=== PATIENT | male | born 1975 | race Caucasian/White ===

== ENCOUNTER 2023-02-12 16:44 | Emergency (ER) | payer OTHER, SELFPAY ==
[2023-02-12 17:06] VITALS: BP 162/95; PULSE 86; RESP 16; TEMP 36.6; O2SAT 97; BMI 25.4
--- NOTE | 2023-02-12 17:09 | ED.EYEPROB1 ---
HPI - Eye Problem General Chief complaint: Eye Problems Stated complaint: EYE INJURY Time Seen by Provider: 02/12/23 16:57 History of Present Illness HPI Narrative: this patient's here to be violated for an eye injury. He was at his job working today. He does wear corrective lenses but he was working quite diligently and the screwdriver he was using accidentally struck him in the right upper eye. He did not have a foreign body sensation or symptoms before he struck himself with a screwdriver. He does not wear contact lenses and doesn't really have any other eye complaints or injuries prior to this event today. He will be questioned in regards to his last tetanus by the nursing staff and treated appropriately. Related Data Home Medications Medication Instructions Recorded Confirmed No Known Home Medications 02/12/23 02/12/23 Allergies Allergy/AdvReac Type Severity Reaction Status Date / Time morphine AdvReac Severe Verified 02/12/23 17:10 Exam Narrative Exam Narrative: awake alert oriented ?3 good historian pleasant fully ambulatory. Problem focused examination as noted below. The craniofacial structures are normal. The left eye is normal. The right eye does not have a subconjunctival hemorrhage. Theere is no scleral icterus there is no pallor or anemia. Pupillary light response is normal. There is no perilimbal injection of the vessels. When we raised the upper eyelid in the most superior aspect of the globe in the conjunctival area this four or five what appears to be small particulate foreign bodies. He suggested they could be neoplastic or grease. They look more like plastic. We will go ahead and then placed some tetracaine drops to the eye and try to irrigate or remove these foreign bodies from the eye conjunctival area. Constitutional Vital Signs, click to edit/add: Last Vital Signs Temp 97.8 F 02/12/23 17:06 Pulse 86 02/12/23 17:06 Resp 16 02/12/23 17:06 BP 162/95 H 02/12/23 17:06 Pulse Ox 97 02/12/23 17:06 O2 Del Method Room Air 02/12/23 17:31 Course Vital Signs Vital signs: Vital Signs Temperature 97.8 F 02/12/23 17:06 Pulse Rate 86 02/12/23 17:06 Respiratory Rate 16 02/12/23 17:06 Blood Pressure 162/95 H 02/12/23 17:06 Pulse Oximetry 97 02/12/23 17:06 Oxygen Delivery Method Room Air 02/12/23 17:06 Temperature 97.8 F 02/12/23 17:06 Pulse Rate 86 02/12/23 17:06 Respiratory Rate 16 02/12/23 17:06 Blood Pressure 162/95 H 02/12/23 17:06 Pulse Oximetry 97 02/12/23 17:06 Oxygen Delivery Method Room Air 02/12/23 17:31 MDM - Eye Problem MDM Narrative Medical decision making narrative: after application of several drops of tetracaine we had good local anesthesia thigh. The upper eyelid was lifted up and there is at least six or seven small pieces of particulate foreign body on the surface and underneath the conjunctiva on her membrane. With splinter forceps and a moistened Q-tip they were removed. I removed at least seven pieces. He tolerated procedure well. I did not visually see any more residual foreign bodies and I don't believe there is globe puncture. We will go ahead and get the image of the eye to make sure there is no decompression in the anterior-posterior chamber. We will refer him to a bridal consultant tomorrow. He'll be placed on antibiotic drops Discharge Plan Discharge Chief Complaint: Eye Problems Clinical Impression: Foreign body in eyeball, right, Puncture wound of right eyeball Patient Disposition: Home, Self-Care Time of Disposition Decision: 17:57 Prescriptions / Home Meds: No Action No Known Home Medications Additional Instructions: apply antibiotic drops every 4-6 hours. Ice compresses to the eye follow-up with local bridal consultant Dr. Gomez tomorrow Stand Alone Forms: Portal Instructions Referrals: Physician,Non-Staff, MD [Primary Care Provider] - 1 week
[2023-02-12] MEDS: TETRACAINE HCL 0.5% OP SOL 80 DROP/4 ML BOTTLE OP (17:23)
[2023-02-12] MEDS: FLUORESCEIN SODIUM 1 MG STRIP OP (17:35)
--- NOTE | 2023-02-12 17:38 | CT_ITS ---
[address] [address] Patient Name: PRASANTH AGUDELO MRN: [id number] date: 1975 Sex: M Assigned Patient Location: ER Current Patient Location: Accession/Order Number: [id number] Exam Date: 02/12/2023 17:45 Report Date: 02/12/2023 18:39 At the request of: EDWIN LAWRENCE Procedure: CT orbit BI wo con EXAM: CT orbit BI wo con HISTORY: puncture wound right eye with foreign body TECHNIQUE: Axial CT scans through the orbits were obtained without contrast administration. Coronal and sagittal reconstruction images were obtained. Dose reduction techniques were achieved by using: automated exposure control and/or adjustment of mA and /or kV according to patient size and/or use of iterative reconstruction technique. FINDINGS: Orbits are intact. The intraorbital contents appear normal. Visualized lining setter spaces appear normal. Parapharyngeal spaces appear clear. Visualized neck shows no adenopathy. The visualized intracranial contents show no acute process. Craniovertebral junction appears normal. Middle ear cavities are clear. Mastoids are clear. CT/CT orbit BI wo con IMPRESSION: Normal CT of the orbits. Electronically authenticated by: JESSIKA MOON Date: 02/12/2023 18:39
[2023-02-12] MEDS: EYE RELIEF EYE WASH 118 ML/BOTTLE BOTTLE OP (18:03)
[2023-02-12] MEDS: GENTAMICIN SULFATE 0.3% OP SOL 100 DROP/5 ML BOTTLE OP (18:20)
== END 2023-02-12 18:30 | disposition home or self-care (01) ==
PROVIDERS: Emergency Provider Emergency Medicine Emergency Medical Services
DX: S05.51XA Penetrating wound with foreign body of right eyeball, initial encounter (principal); W22.8XXA Striking against or struck by other objects, initial encounter
CPT/HCPCS: 65205; 70480; 99284

== ENCOUNTER 2024-08-27 14:06 | Emergency (ER) | payer BC, SELFPAY ==
[2024-08-27 14:09] VITALS: BP 170/96; PULSE 96; TEMP 36.8; O2SAT 97; BMI 25.0
--- NOTE | 2024-08-27 14:17 | ED_ITS ---
HPI - Wound/Laceration General Chief Complaint: Wound/Laceration Stated Complaint: LACERATION - HAND Time Seen by Provider: 08/27/24 14:08 Mode of arrival: walk-in History of Present Illness HPI narrative: Patient is a 49-year-old male who presents to the emergency department for stab wound to the palm of the left hand. He states he was using a pick to help him remove the seal on a hydraulic piece of equipment in his home. He states the pick slipped and he stabbed himself in the palmar aspect of the left hand just proximal to the second and third MCP joints. He did not puncture all the way through the dorsum of the left hand but a small hematoma is forming in the area as he almost push through the skin. Last tetanus about 10 years ago. No other associated injuries. He has no significant pain at this time. He is able to move the fingers of the left hand without difficulty. He is ambidextrous. Related Data Previous Rx's ?Medication ?Instructions ?Recorded cephalexin 500 mg capsule 500 mg PO Q8H 5 days #15 caps 08/27/24 hydrocodone 5 mg-acetaminophen 325 1 tab PO Q6H PRN pain 3 days #12 08/27/24 mg tablet tabs Allergies Allergy/AdvReac Type Severity Reaction Status Date / Time morphine AdvReac Severe Verified 02/12/23 17:10 Review of Systems ROS Constitutional Denies: fever or chills Ears, nose, mouth, and throat Denies: throat pain or nasal congestion Cardiovascular Denies: chest pain Respiratory Denies: shortness of breath Gastrointestinal Denies: nausea or vomiting Musculoskeletal Denies: back pain or neck pain Integumentary/Breast Denies: rash Neurological Denies: numbness in extremities or weakness in extremities Hematologic/Lymphatic Denies: easy bruising or easy bleeding PFSH PFSH Social History Little interest or pleasure in doing things: not at all Feeling down, depressed, or hopeless: not at all Exam Narrative Exam Narrative: Gen.: Awake, alert, in no distress Head: Normocephalic, atraumatic ENT: Moist mucous membranes Respiratory: No respiratory distress Extremities: Left hand with a small puncture wound on the palmar aspect of the hand just proximal to the second and third MCP joints. No deep laceration visible or exposure of subcutaneous tissue. Palmar aspect of the hand with no puncture wounds, bleeding or lacerations. A small hematoma is noted on the dorsum of the hand proximal to the second and third MCP joints. Patient is able to flex and extend the second and third digits at the PIP and DIP joints as well as the MCP joints. No evidence of tendon deficit. Psych: Normal mood and affect Neuro: No focal neuro deficit Skin: Warm, dry Constitutional Vital Signs, click to edit/add: Last Vital Signs Temp 98.2 F 08/27/24 14:09 Pulse 96 H 08/27/24 14:09 Resp 18 08/27/24 14:09 BP 170/96 H 08/27/24 14:09 Pulse Ox 97 08/27/24 14:09 Course Vital Signs Vital signs: Vital Signs Temperature 98.2 F 08/27/24 14:09 Pulse Rate 96 H 08/27/24 14:09 Respiratory Rate 18 08/27/24 14:09 Blood Pressure 170/96 H 08/27/24 14:09 Pulse Oximetry 97 08/27/24 14:09 Temperature 98.2 F 08/27/24 14:09 Pulse Rate 96 H 08/27/24 14:09 Respiratory Rate 18 08/27/24 14:09 Blood Pressure 170/96 H 08/27/24 14:09 Pulse Oximetry 97 08/27/24 14:09 MDM - Wound/Laceration MDM Narrative Medical decision making narrative: Tetanus was ordered but declined by patient. X-rays were obtained which are unremarkable. Bleeding is well-controlled to the puncture wound and the patient is neurovascularly intact with no evidence of tendon deficit. The area was cleansed, dressed with bacitracin and wound dressing with Colin wrap. Patient remains neurovascularly intact. Rest, ice, elevate. Antibiotics and a short course of analgesics given for home. Return to the emergency department if symptoms change or worsen. SUPERVISED APC VISIT, PHYSICIAN ATTESTATION: Based on the medical record the care appears appropriate. ? Medical Records Attestation: I reviewed the patient's medical records. Imaging Data XR hand: Attestation: I have reviewed the pertinent imaging results. Discharge Plan Discharge Chief Complaint: Wound/Laceration Clinical Impression: Puncture wound of left hand Patient Disposition: Home, Self-Care Time of Disposition Decision: 14:44 Condition: Good Prescriptions / Home Meds: New hydrocodone-acetaminophen 5-325 mg tablet 1 tab PO Q6H PRN (Reason: pain) 3 Days Qty: 12 0RF Rx Instructions: M79.642 cephalexin 500 mg capsule 500 mg PO Q8H 5 Days Qty: 15 0RF Print Language: [place] Instructions: Puncture Wound (ED) Referrals: Physician,Non-Staff, MD [Primary Care Provider] - 1 week
[2024-08-27] MEDS: BACITRACIN 0.9 GM PACKET 1 PACKET TOPICAL (14:29)
== END 2024-08-27 15:11 | disposition home or self-care (01) ==
PROVIDERS: Emergency Provider Emergency Medicine
DX: S61.432A Puncture wound without foreign body of left hand, initial encounter (principal); W27.8XXA Contact with other nonpowered hand tool, initial encounter
CPT/HCPCS: 73130; 99283